=== PATIENT | female | born 1970 | race Caucasian/White ===

== ENCOUNTER 2019-01-26 19:54 | Emergency (ER) | payer BC ==
[2019-01-26] MEDS ORDERED: Alum Hydrox/Mag Hydrox/Simeth 30 ML, Lidocaine 2% 15 ML PO ONE ×2 (20:46)
--- NOTE | 2019-01-26 21:19 | EDM.PDOC ---
ED HPI GENERAL MEDICAL PROBLEM - General Chief Complaint: Chest Pain Stated Complaint: BURNING SENSATION IN CHEST Time Seen by Provider: 01/26/19 20:44 Source of Information: Reports: Patient History Limitations: Reports: No Limitations - History of Present Illness INITIAL COMMENTS - FREE TEXT/NARRATIVE: 48 yo F comes in today with complaints of burning chest pain located in the epigastric area radiating below the R breast that started this AM. She states she woke up "not feeling well" and felt she had F/C, JOLLEY, fatigue and diarrhea. She states she hasn't had this kind of pain before, but it does remind her of one time she had heartburn in high school. She did try TUMS and ibuprofen this AM w/ some relief, but the burning pain returned. She describes it now as dull and achy, but improving. She denies any new stress or anxiety. She doesn't think she had anything spicy to eat, but did say she had a cheeseburger cumin soup last night. She has never had an endoscopy or GI followup. No other concerns at this time. - Related Data Allergies Allergy/AdvReac Type Severity Reaction Status Date / Time No Known Allergies Allergy Verified 01/26/19 20:09 Home Meds: Home Meds Cyanocobalamin (Vitamin B12) [Vitamin B12] 0 mcg PO DAILY 01/26/19 [History] Fish Oil/Thomas-3 Fatty Acids [Fish Oil 1,000 MG] 2 cap PO DAILY 01/26/19 [ History] Sertraline [Zoloft] 75 mg PO DAILY 01/26/19 [History] Vitamin B Complex 1 cap PO DAILY 01/26/19 [History] Past Medical History - Past Health History Medical/Surgical History: Denies Medical/Surgical History HEENT History: Reports: Impaired Vision Other HEENT History: wears eyeglasses. 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 - Infectious Disease History Infectious Disease History: Reports: Chicken Pox - Past Surgical History Female Surgical History: Reports: Tubal Ligation Social & Family History - Tobacco Use Smoking Status *Q: Current Some Day Smoker Years of Tobacco use: 15 Packs/Tins Daily: 0.2 - Caffeine Use Caffeine Use: Reports: Coffee, Energy Drinks - Recreational Drug Use Recreational Drug Use: No ED ROS GENERAL - Review of Systems Review Of Systems: ROS reveals no pertinent complaints other than HPI. ED EXAM, GENERAL - Physical Exam Exam: See Below Exam Limited By: No Limitations General Appearance: Alert, WD/WN, No Apparent Distress Eye Exam: Bilateral Eye: EOMI, Normal Inspection, PERRL Ears: Normal External Exam, Hearing Grossly Normal Respiratory/Chest: No Respiratory Distress, Lungs Clear, Normal Breath Sounds, No Accessory Muscle Use, Chest Non-Tender Cardiovascular: Normal Peripheral Pulses, Regular Rate, Rhythm, No Edema, No Gallop, No JVD, No Murmur, No Rub GI/Abdominal: Soft, Non-Tender, No Organomegaly, No Distention, No Abnormal Bruit, No Mass, Abnormal Bowel Sounds (hyperactive) Back Exam: Normal Inspection, Full Range of Motion, NT Neurological: Alert, Oriented, CN II-XII Intact, Normal Cognition, Normal Gait, Normal Reflexes, No Motor/Sensory Deficits Psychiatric: Normal Affect, Normal Mood Skin Exam: Warm, Dry, Intact, Normal Color, No Rash EKG INTERPRETATION EKG Date: 01/26/19 Time: 21:13 Rhythm: NSR [place]: Normal P-Wave: Present QRS: Normal ST-T: Normal QT: Normal Course - Vital Signs Last Recorded V/S: Last Vital Signs Temp 97.8 F 01/26/19 20:05 Pulse 94 01/26/19 20:05 Resp 14 01/26/19 20:05 BP 121/74 01/26/19 20:05 Pulse Ox 94 L 01/26/19 20:05 - Orders/Labs/Meds Orders: Active Orders 24 hr Category Date Time Status EKG Documentation Completion [RC] ASDIRECTED Care 01/26/19 20:45 Active Chest 2V [CR] Stat Exams 01/26/19 20:45 Taken TROPONIN I [CHEM] Stat Lab 01/26/19 21:10 Received EKG 12 Lead [EK] Stat Ther 01/26/19 20:45 Ordered Meds: Medications Discontinued Medications Generic Name Dose Route Start Last Admin Trade Name Ely PRN Reason Stop Dose Admin Al Hydroxide/Mg Hydroxide 30 0 ml 01/26/19 20:46 01/26/19 20:51 ml/ Lidocaine HCl 15 ml PO 01/26/19 20:47 45 ml ONETIME ONE Administration - Re-Assessments/Exams Free Text/Narrative Re-Assessment/Exam: 01/26/19 20:45 Ordered EKG, CXR, Troponin. GI cocktail ordered. 01/26/19 21:20 EKG reviewed by myself and Dr. Caro- nothing acute seen. CXR reviewed by myself and Dr. Caro- nothing acute seen. 01/26/19 21:30 GI Cocktail given but she states she was feeling better before taking it, so unsure if had affect. 01/26/19 21:46 Troponin <0.017 At this time, the patient is stating she is feeling better. She is stable enough to go home at this time. She can f/u with her PCP for further workup if deemed necessary. Departure - Departure Time of Disposition: 21:48 Disposition: Home, Self-Care 01 Condition: Good Clinical Impression: Atypical chest pain, Heartburn Instructions: Nonspecific Chest Pain, [id number], Indigestion, [id number] Referrals: Isamar Teague NP [Primary Care Provider] - Forms: ED Department Discharge Additional Instructions: You were seen in the ED today for burning chest pain that started this morning. At this time, your cardiac workup was negative for heart attack or any acute emergency. At this time, you are feeling better and are stable enough to go home. This may have been heartburn, so recommend avoiding spicy food and eating late at night before bed. You can continue TUMS over the counter for relief. If symptoms continue, may consider GI specialist follow up. Recommend follow up with your primary care physician. Please return to ED if new or worsening symptoms. - My Orders Last 24 Hours: My Active Orders 01/26/19 20:45 EKG Documentation Completion [RC] ASDIRECTED Chest 2V [CR] Stat EKG 12 Lead [EK] Stat 01/26/19 21:10 TROPONIN I [CHEM] Stat - Assessment/Plan Last 24 Hours: My Active Orders 01/26/19 20:45 EKG Documentation Completion [RC] ASDIRECTED Chest 2V [CR] Stat EKG 12 Lead [EK] Stat 01/26/19 21:10 TROPONIN I [CHEM] Stat
--- NOTE | 2019-01-28 10:55 | CR ---
Chest: Two views of the chest were obtained. Comparison: No prior chest x-ray. Heart size and mediastinum are normal. Minimal linear atelectasis or scarring is incidentally noted within the left base. Lungs otherwise are clear. Bony structures show a slight superior endplate deformity within the thoracolumbar junction which appears old. Impression: 1. Incidental findings. Nothing acute is identified. Diagnostic code #2
== END 2019-01-26 21:56 | disposition home or self-care (01) ==
LOC: JD.ED 19:54
DX: R07.89 Other chest pain (principal); R12 Heartburn; F17.210 Nicotine dependence, cigarettes, uncomplicated; F41.9 Anxiety disorder, unspecified; F32.9 Major depressive disorder, single episode, unspecified; Z79.899 Other long term (current) drug therapy
CPT/HCPCS: 36415; 71046; 84484; 93005; 99285; A9270; 93010; 99284